=== PATIENT | male | born 1995 | race Caucasian/White ===

== ENCOUNTER 2019-09-21 19:42 | Emergency (ER) | payer MEDICAID ==
[~2019-09-21] VITALS: Ht 167.6 cm; Wt 53.1 kg
[2019-09-21 20:00] VITALS: BP 112/72
--- NOTE | 2019-09-21 20:26 | NUR ---
PT AMBULATED TO CHAIR 5 WITH FAMILY
--- NOTE | 2019-09-21 20:45 | NUR ---
24 Y/O MALE C/O LOW BACK PAIN X 2 WKS. PT STATES PAIN RADIATES TO BILATERAL LOWER EXTREMITIES. 10/10 SHARP PAIN TO BACK. DENIES TRAUMA/INJURY TO BACK OR EXTREMITIES. PAIN INCREASED WITH AMBULATION. PT C/O FREQUENT AND PAINFUL URINATION X 1 WK. BURNING SENSATION WITH URINATION. DENIES HEMATURIA. PT SITTING IN BED POSITIONED FOR COMFORT. RR EVEN AND UNLABORED. VSS. FAMILY MEMBERS AT BEDSIDE MEDHX: DENIES ALLERGIES: NKA
[2019-09-21] MEDS ORDERED: KETOROLAC 60 MG/2 ML VIAL IM ONE (21:15)
--- NOTE | 2019-09-21 21:19 | NUR ---
PT TO RADIOLOGY VIA WHEELCHAIR
[2019-09-21] MEDS ORDERED: HYDROcodone/APAP 5/325 MG 1 TAB TAB PO ONE (21:35)
--- NOTE | 2019-09-21 22:06 | NUR ---
PT STATES DECREASE IN PAIN. 5/10 SHARP PAIN TO BACK.
[2019-09-21 22:31] VITALS: BP 112/72
--- NOTE | 2019-09-21 22:31 | NUR ---
PT STATES 11/02 PAIN
--- NOTE | 2019-09-21 22:31 | NUR ---
Patient discharged with v/s stable. Written and verbal after care instructions given and explained. Patient alert, oriented and verbalized understanding of instructions. Ambulatory with steady gait. All questions addressed prior to discharge. ID band removed. Patient advised to follow up with PMD. Rx of IBURPROFEN, FLEXERIL, AND MEDROL given. Patient educated on indication of medication including possible reaction and side effects. Opportunity to ask questions provided and answered. PT STATES HIS IS DRIVING HIM HOME
== END 2019-09-21 22:32 | disposition home or self-care (01) ==
LOC: MED 19:42
DX: S39.012A Strain of muscle, fascia and tendon of lower back, initial encounter (principal); X58.XXXA Exposure to other specified factors, initial encounter; Y93.89 Activity, other specified; Y92.89 Other specified places as the place of occurrence of the external cause; Y99.8 Other external cause status
CPT/HCPCS: 72100; 81002; 96372; 99283; J1885

== ENCOUNTER 2024-01-14 19:10 | Emergency (ER) | payer MEDICAID, OTHER ==
[~2024-01-14] VITALS: Ht 165.1 cm; Wt 54.4 kg
[2024-01-14 19:33] VITALS: BP 109/65; PULSE 96; RESP 20; TEMP 98.1; O2SAT 100
[2024-01-14 20:34] LABS: EOSINOPHILS # (AUTO) 0.2 K/uL (0-0.4); EOSINOPHILS % (AUTO) 1.8 % (0.0-4.0); HEMATOCRIT 46.7 % (36-52); HEMOGLOBIN 16.3 g/dL (12.0-18.0); LYMPHOCYTES # (AUTO) 0.7 K/uL (2.0-11.5); LYMPHOCYTES % (AUTO) 6.8 % (20.5-51.1); MEAN CORPUSCULAR HEMOGLOBIN 31 pg (27-31); MEAN CORPUSCULAR HGB CONC 35 g/dL (33-37); MEAN CORPUSCULAR VOLUME 89.6 fL (80-94); MONOCYTES # (AUTO) 0.8 K/uL (0.8-1.0); MONOCYTES % (AUTO) 8.4 % (1.7-9.3); PLATELET COUNT (AUTO) 227 K/uL (140-450); RED BLOOD CELL COUNT(AUTO) 5.21 MIL/uL (4.20-6.10); RED CELL DISTRIBUTION WIDTH 12.8 % (11.6-13.7); WHITE BLOOD COUNT (AUTO) 9.6 K/uL (4.8-10.8)
[2024-01-14 20:51] LABS: ALBUMIN 4.7 g/dL (3.4-5.0); ANION GAP 15.7 (8-16); CALCIUM 9.9 mg/dL (8.5-10.1); CARBON DIOXIDE 27.3 mmol/L (21-32); TOTAL BILIRUBIN 0.8 mg/dL (0.0-1.0); TOTAL PROTEIN, SERUM 8.3 g/dL (6.4-8.2)
[2024-01-14 22:00] VITALS: O2SAT 100
[2024-01-14] MEDS: NACL 0.9% 1,000 ML IV ONE (22:11)
[2024-01-14] MEDS ORDERED: AMOX-1230 PO (22:26)
[2024-01-14] MEDS ORDERED: ONDANSETRON 4 MG/2 ML VIAL ONE (22:29)
[2024-01-14] MEDS: ONDANSETRON 4 MG/2 ML VIAL IVP ONE (22:32)
== END 2024-01-14 22:45 | disposition home or self-care (01) ==
LOC: MED 19:10
DX: R10.32 Left lower quadrant pain (principal); R19.7 Diarrhea, unspecified; R55 Syncope and collapse; Z79.899 Other long term (current) drug therapy
CPT/HCPCS: 36415; 74177; 80053; 83690; 85025; 96361; 96374; 99285; J2405; J7030; Q9967